=== PATIENT | female | born 1965 | race Caucasian/White ===

== ENCOUNTER 2016-05-19 10:53 | Day surgery (SDC) | payer BC ==
[2016-05-19 11:01] VITALS: BMI 31.6
--- NOTE | 2016-05-19 11:06 | PDOC ---
History of Present Illness - General History Source: Patient Exam Limitations: No Limitations - History of Present Illness Initial Comments: 05/19/16 11:07 The patient is a 50-year-old woman, with a significant past medical history of asthma, cardiomyopathy, breast ([id number] status post bilateral mastectomies) and ovarian Ca (Stage III; on IV taxol; Finished her third cycle last week), colon polyps, who presents to the emergency department for further evaluation of a possible reocurring left sided infected chest port since yesterday. As per patient, she reports that she noted slight redness around her port, approximately two weeks . She was on a ten day course of Keflex, for which she finished approximately 5 days ago. She states both peripheral and port blood cultures were drawn and were negative. She reports she has remained asymptomatic , no fevers, chills, cough, chest pain, lightheadedness, dizziness, palpitations , abdominal pain, nausea, vomiting. She reports noting redness around her port, yesterday. She states she has remained NPO. Upon interview, patients PMD, Dr. Bernadine Garcias was at the bedside. She reports she has spoken to Vascular Surgeon, Dr. Kleber Ordoñez and is aware about this case. Allergies: Piperacillin Sodium, Tazobactam. Docetaxel. Past Surgical History: Incarcerated hernia. Lumbar laminectomy. Bilateral Mastectomies. 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 No ETOH and recreational drug use. Primary Care Physician: Dr. Bernadine Garcias Office: / Oncologist: Dr. Dante Cantu Vascular Surgeon: Dr. Anam Ordoñez [phone] <Elke Doe - Last Filed: 05/19/16 14:01> <Raymond Gresham - Last Filed: 05/21/16 09:07> - General Chief Complaint: Wound Stated Complaint: INFFECTED PORT/ CATHERER Time Seen by Provider: 05/19/16 11:05 Past History <Elke Doe - Last Filed: 05/19/16 14:01> - Past Medical History Anemia: No Asthma: Yes Cancer: Yes (BREAST CA,ovarian ca stage 3) Cardiac Disorders: No CVA: No COPD: No CHF: No Dementia: No Diabetes: No GI Disorders: No Disorders: No HTN: No Hypercholesterolemia: No Liver Disease: No Seizures: No Thyroid Disease: No - Surgical History Abdominal Surgery: Yes (incarcerated hernia) Appendectomy: No Cardiac Surgery: No Cholecystectomy: No Lung Surgery: No Neurologic Surgery: No Orthopedic Surgery: Yes (LUMBAR LAMINECTOMY) - Psycho/Social/Smoking Cessation Hx Anxiety: No Suicidal Ideation: No Smoking History: Former smoker Have you smoked in the past 12 months: Yes If you are a former smoker, when did you quit?: 6 months Information on smoking cessation initiated: No 'Breaking Loose' booklet given: 08/04/15 Hx Alcohol Use: No Drug/Substance Use Hx: No Substance Use Type: None Hx Substance Use Treatment: No <Raymond Gresham - Last Filed: 05/21/16 09:07> - Past Medical History Allergies/Adverse Reactions: Allergies Allergy/AdvReac Type Severity Reaction Status Date / Time piperacillin sodium Allergy Severe Hives Verified 05/19/16 10:55 [From Zosyn] tazobactam sodium Allergy Severe Hives Verified 05/19/16 10:55 [From Zosyn] docetaxel [From Taxotere] Allergy Verified 05/19/16 10:55 PROLINE SUTURES Allergy Severe Uncoded 05/19/16 10:55 Home Medications: Ambulatory Orders Budesonide/Formeterol Fumarate [SYMBICORT 160/4.5mcg -] 1 inh PO BID #1 inhaler 01/07/14 Esomeprazole Magnesium [Nexium 24Hr] 20 mg PO DAILY PRN 08/04/15 Nebivolol HCl [Bystolic] 2.5 mg PO HS 08/04/15 Acetaminophen [Tylenol .Regular Strength -] 325 mg PO Q6H PRN #0 tablet Ramipril 2.5 mg PO HS 01/30/16 Oxycodone HCl/Acetaminophen [Percocet 5-325 mg Tablet] 1 - 2 tab PO Q4H #20 tablet MDD 6 02/02/16 Furosemide [Lasix -] 20 mg PO DAILY 03/15/16 Magnesium Oxide [Magnesium] 500 mg PO BID 03/15/16 Potassium Chloride [K-Dur -] 20 meq PO BID 03/15/16 Cephalexin Monohydrate [Keflex -] 500 mg PO Q8H #30 capsule 05/19/16 Filgrastim [Neupogen] 480 mcg IJ DAILY #0 05/19/16 Review of Systems - Review of Systems Able to Perform ROS?: Yes Comments:: 05/19/16 11:07 CONSTITUTIONAL: No reported: Fever, Chills, Diaphoresis, Generalized Weakness, Malaise, Loss of Appetite HEENT: No reported: Rhinorrhea, Nasal Congestion, Throat Pain, Throat Swelling, Difficulty Swallowing, Mouth Swelling, Ear Pain, Eye Pain, Visual Changes CARDIOVASCULAR: Reported: Chest Pain. Eleevated Blood Pressure and Heart Rate. No reported: Syncope, Irregular Heart Rate, Lightheadedness, Peripheral Edema RESPIRATORY: No reported: Cough, Shortness of Breath, SOB with Exertion, Orthopnea, Wheezing , Stridor, Hemoptysis GASTROINTESTINAL: No reported: Abdominal pain, Abdominal Distension, Nausea, Vomiting, Diarrhea, Constipation, Melena, Hematochezia GENITOURINARY: Reported: Flank Pain. No reported: Dysuria, Frequency, Urgency, Hesitancy, Genital Pain MUSCULOSKELETAL: Reported: Back Pain. No reported: Myalgia, Arthralgia, Joint Swelling, Neck Pain SKIN: No reported: Rash, Itching, Pallor HEMEATOLOGIC/IMMUNOLOGIC: Reported: Possible reocurring left sided chest port infection.No reported: Easy Bleeding, Easy Bruising, Lymphadenopathy. ENDOCRINE: No reported: Unexplained Weight Gain, Unexplained Weight Loss, Heat Intolerance , Cold Intolerance NEUROLOGIC: No reported: Headache, Focal Weakness, Paresthesias, Vertigo, Lightheadedness, Unsteady Gait, Seizure, Mental Status Changes, Incontinence PSYCHIATRIC: No reported: Anxiety, Depression <Elke Doe - Last Filed: 05/19/16 14:01> *Physical Exam - Vital Signs Last Vital Signs Temp Pulse Resp BP Pulse Ox 98.4 F 103 H 18 143/57 98 05/19/16 10:56 05/19/16 10:56 05/19/16 10:56 05/19/16 10:56 05/19/16 10:56 - Physical Exam Comments: 05/19/16 11:07 GENERAL: The patient is awake, alert, and fully oriented, Nontoxic - in no acute distress. HEAD: Normocephalic, atraumatic. EYES: extraocular movements intact, sclera anicteric, conjunctiva clear. ENT: Normal voice, Moist mucous membranes. NECK: Normal range of motion, supple LUNGS: Breath sounds equal, clear to auscultation bilaterally. No wheezes, no rhonchi, no rales. HEART: Regular rate and rhythm, without murmur, rub or gallop. ABDOMEN: Soft, nontender, normoactive bowel sounds. No guarding, no rebound.No CVA tenderness EXTREMITIES: Normal range of motion, no edema. No clubbing or cyanosis. No cords, erythema, or tenderness. NEUROLOGICAL: No facial assymetry, Normal speech, PSYCH: Normal mood, normal affect. SKIN: There is a left chest port with erythema and warmth over the access site. <Elke Doe - Last Filed: 05/19/16 14:01> - Vital Signs Last Vital Signs Temp Pulse Resp BP Pulse Ox 98.4 F 103 H 18 143/57 98 05/19/16 10:56 05/19/16 10:56 05/19/16 10:56 05/19/16 10:56 05/19/16 10:56 <Raymond Gresham - Last Filed: 05/21/16 09:07> ED Treatment Course - LABORATORY CBC & Chemistry Diagram: 05/19/16 12:28 05/19/16 12:28 <Elke Doe - Last Filed: 05/19/16 14:01> - LABORATORY CBC & Chemistry Diagram: 05/19/16 12:28 05/19/16 12:28 <Raymond Gresham - Last Filed: 05/21/16 09:07> Medical Decision Making - Medical Decision Making 05/19/16 11:38 Call was placed to Dr. Ordoñez's mobile phone at . Immediate response. Case was discussed. <Elke Doe - Last Filed: 05/19/16 14:01> - Medical Decision Making 05/19/16 11:24 50y F hx of ovarian ca currently on chemo, with port in the R chest, presents with erythema overlying her R chest - pt was formerly on course of keflex 2 weeks ago for the same with resolution of the erythema, but returned 2 days ago. No systemic complaints. Pt chest noted to have erythema/warmth overlying access area of her port. noted slightly tachycardic here but vitals otherwise normal. will discuss with dr. ordoñez regarding replcement will obtain repeat labs.cultures likely admission case d/w dr. garcias A portion of this note was documented by scribe services under my direction. I have reviewed the details of the note, within reason, and agree with the documentation with the following case summary and management plan written by me <Raymond Gresham - Last Filed: 05/21/16 09:07> *DC/Admit/Observation/Transfer - Attestations Scribe Attestion: 05/19/16 11:07 Documentation prepared by Elke Doe, acting as medical delivery driver for Raymond Gresham MD. <Elke Doe - Last Filed: 05/19/16 14:01> - Discharge Dispostion Admit: Yes <Raymond Gresham - Last Filed: 05/21/16 09:07> Diagnosis at time of Disposition: Infection due to portacath Qualifiers: Encounter type: initial encounter Qualified Code(s): T80.219A - Unspecified infection due to central venous catheter, initial encounter - Discharge Dispostion Condition at time of disposition: Good - Prescriptions
--- NOTE | 2016-05-19 12:18 | HP ---
Admitting History and Physical - Primary Care Physician PCP: Bernadine Garcias S - Admission Chief Complaint: infected port History of Present Illness: The patient is a 50-year-old woman, with a significant past medical history of asthma, cardiomyopathy, breast CA ([id number] status post bilateral mastectomies ) and ovarian Ca (Stage III; on IV taxol; Finished her third cycle last week), colon polyps, who presents to the emergency department for further evaluation of a possible reocurring left sided infected chest port since yesterday. As per patient, she reports that she noted slight redness around her port, approximately two weeks . She was on a ten day course of Keflex, for which she finished approximately 5 days ago. She states both peripheral and port blood cultures were drawn and were negative. She reports she has remained asymptomatic , no fevers, chills, cough, chest pain, lightheadedness, dizziness, palpitations , abdominal pain, nausea, vomiting. She reports noting redness around her port, yesterday. She states she has remained NPO. Allergies: Piperacillin Sodium, Tazobactam. Docetaxel. 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 Cardiovascular: Yes: CHF, Other (cardiomyopathy s/p chemotx, EF 45%) Pulmonary: Yes: Asthma Gastrointestinal: Yes: GERD, Other (hyperplastic colon polyps 2009 and 2102, pancreatic cyst on 2013 MRI, hiatal hernia ) Hepatobiliary: Yes: Other (GB sludge) ...LMP: 12/30/14 Heme/Onc: Yes: Cancer (breasts CA bilat s/p mastectomy) - Past Surgical History Past Surgical History: Yes: Breast Biopsy, Colonoscopy, , Laminectomy, Mastectomy, Upper Endoscopy - Smoking History Smoking history: Former smoker Have you smoked in the past 12 months: Yes If you are a former smoker, when did you quit?: 6 months - Alcohol/Substance Use Hx Alcohol Use: No History of Substance Use: reports: None - Social History Usual Living Arrangement: Yes: With Spouse ADL: Independent 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 Travel: No Home Medications - Allergies Allergies/Adverse Reactions: Allergies Allergy/AdvReac Type Severity Reaction Status Date / Time piperacillin sodium Allergy Severe Hives Verified 05/19/16 10:55 [From Zosyn] tazobactam sodium Allergy Severe Hives Verified 05/19/16 10:55 [From Zosyn] docetaxel [From Taxotere] Allergy Verified 05/19/16 10:55 PROLINE SUTURES Allergy Severe Uncoded 05/19/16 10:55 - Home Medications Home Medications: Ambulatory Orders Budesonide/Formeterol Fumarate [SYMBICORT 160/4.5mcg -] 1 inh PO BID #1 inhaler 01/07/14 Esomeprazole Magnesium [Nexium 24Hr] 20 mg PO DAILY PRN 08/04/15 Nebivolol HCl [Bystolic] 2.5 mg PO HS 08/04/15 Acetaminophen [Tylenol .Regular Strength -] 325 mg PO Q6H PRN #0 tablet Ramipril 2.5 mg PO HS 01/30/16 Oxycodone HCl/Acetaminophen [Percocet 5/325 -] 1 - 2 tab PO Q4H #20 tablet MDD 6 02/02/16 Furosemide [Lasix -] 20 mg PO DAILY 03/15/16 Magnesium Oxide [Magnesium] 500 mg PO BID 03/15/16 Potassium Chloride [K-Dur -] 20 meq PO BID 03/15/16 Filgrastim [Neupogen] 480 mcg IJ DAILY 05/19/16 Family Disease History - Family Disease History Family Disease History: Heart Disease: Father, CA: Mother (Breast cancer, colon cancer), Other: Mother, Sister (Sjogren's syndrome) Review of Systems - Review of Systems Constitutional: denies: Chills, Fever Eyes: denies: Blurred Vision, Double Vision HENT: denies: Difficult Swallowing, Ear Pain Neck: denies: Stiffness, Tenderness Gastrointestinal: denies: Abdominal Pain, Bloating, Constipation, Diarrhea, Vomiting Genitourinary: denies: Dysuria, Flank Pain Neurological: denies: Change in LOC, Change in Speech, Confusion Hematology/Lymphatic: denies: Easily Bruised, Excessive Bleeding Psychiatric: denies: Altered Sleep Pattern, Anxiety, Depression Physical Examination Vital Signs: Vital Signs Temperature 98.4 F 05/19/16 10:56 Pulse Rate 103 H 05/19/16 10:56 Respiratory Rate 18 05/19/16 10:56 Blood Pressure 143/57 05/19/16 10:56 O2 Sat by Pulse Oximetry (%) 98 05/19/16 10:56 Constitutional: Yes: No Distress, Calm Eyes: Yes: Conjunctiva Clear HENT: Yes: Atraumatic Neck: Yes: Supple Cardiovascular: Yes: Regular Rate and Rhythm Respiratory: Yes: CTA Bilaterally Gastrointestinal: Yes: Soft. No: Distention, Tenderness Renal/: No: CVA Tenderness - Left, CVA Tenderness - Right Musculoskeletal: No: Joint Stiffness, Joint Swelling Extremities: No: Cold, Cool Edema: No Integumentary: Yes: Rash (over L upper chest port). No: Venous Stasis Changes Neurological: Yes: WNL, Alert, Oriented ...Motor Strength: WNL Psychiatric: Yes: WNL, Alert, Oriented. No: Agitated, Suicidal Ideation Assessment/Plan The patient is a 50-year-old woman, with a significant past medical history of asthma, cardiomyopathy, breast ([id number] status post bilateral mastectomies) and ovarian Ca (Stage III; on IV taxol; Finished her third cycle last week), colon polyps, who presents to the emergency department for further evaluation of a possible reocurring left sided infected chest port since yesterday. s/p recent po Keflex. d/w vascular sx dr Biswas (covering dr Wall who is in vacation) will removed infected port PO keflex, further ATB depending on intraop findings pt received neupogen 1 dose today in onc office, for WBC 2.7
[2016-05-19 12:47] LABS: MCH 32.9 pg (25.7-33.7); MCHC 35.1 g/dl (32.0-36.0); MEAN CELL VOLUME 93.8 fl (80-96); MEAN PLT VOLUME 9.9 fl (7.5-11.1); PLATELET COUNT 100 K/MM3 (134-434); RDW 13.8 % (11.6-15.6); WHITE BLOOD COUNT 3.5 K/mm3 (4.0-10.0)
[2016-05-19] MEDS ORDERED: LIDOCAINE HCL 1%, 10 MG/ML (20ML VIAL) ONE (13:04)
[2016-05-19 13:26] LABS: METAMYELOCYTE 1 % (0-2)
[2016-05-19] MEDS ORDERED: MIDAZOLAM HCL 2 MG/2 ML SINGLE DOSE VIAL ONE (13:26)
[2016-05-19 13:28] LABS: ALBUMIN 3.4 g/dl (3.4-5.0); BILIRUBIN,TOTAL 0.3 mg/dL (0.2-1.0); CREATININE 1.2 mg/dL (0.55-1.02)
[2016-05-19 13:29] LABS: TOT PROT 6.5 g/dl (6.4-8.2)
[2016-05-19] MEDS ORDERED: ceFAZolin SODIUM 1 GM VIAL ONE (13:35)
[2016-05-19] MEDS ORDERED: PROPOFOL 20 ML ONE (13:35)
[2016-05-19] MEDS ORDERED: ceFAZolin SODIUM 1 GM VIAL IVPB ONE (13:36)
[2016-05-19] MEDS ORDERED: LIDOCAINE HCL 1%, 10 MG/ML (20ML VIAL) IJ ONE ×2 (13:50)
[2016-05-19] MEDS ORDERED: KETOROLAC TROMETHAMINE 30 MG/1 ML VIAL ONE (13:59)
[2016-05-19] MEDS ORDERED: ONDANSETRON 4 MG/2 ML VIAL IVPUSH PRN (14:19)
[2016-05-19] MEDS ORDERED: oxyCODONE HCL 5 MG TABLET PO PRN ×2 (14:19→17:17)
[2016-05-19] MEDS ORDERED: ACETAMINOPHEN 1000 MG/100 ML VIAL (NON FORMULARY) IVPB PRN (14:20)
[2016-05-19] MEDS: HYDROmorphone HCL CARPU-JECT 1 MG/1 ML DISP.SYRIN IVPUSH PRN ×2 (14:20→14:35)
[2016-05-19] MEDS ORDERED: HYDROmorphone HCL CARPU-JECT 2 MG/1 ML DISP.SYRIN ONE (14:20)
--- NOTE | 2016-05-19 14:21 | OP ---
Operative Note - Note: Operative Date: 05/19/16 Pre-Operative Diagnosis: infected portacath Operation: Removal of portacath Findings: cultures taken from wound Post-Operative Diagnosis: Same as Pre-op Surgeon: Anam Biswas Anesthesia: Fractional Estimated Blood Loss (mls): 10 Operative Report Dictated: Yes
[2016-05-19] MEDS ORDERED: SODIUM CHLORIDE 1,000 ML IV SCH ×2 (14:30)
[2016-05-19 15:22] VITALS: TEMP 97.8
[2016-05-19] MEDS ORDERED: PATIENT'S OWN MEDICATION (NON-FORMULARY) (Esomeprazole Magnesium [Nexium 24hr] 20 MG) PO PRN (15:53)
[2016-05-19] MEDS ORDERED: ACETAMINOPHEN 325 MG TABLET (FP) PO PRN ×3 (15:53→17:17)
[2016-05-19] MEDS ORDERED: OXYCODONE/APAP 5/325MG COMBO TABLET PO SCH (16:00)
--- NOTE | 2016-05-19 16:00 | DS ---
Physical Examination Vital Signs: Vital Signs Temperature 97.8 F 05/19/16 15:15 Pulse Rate 76 05/19/16 15:15 Respiratory Rate 16 05/19/16 15:15 Blood Pressure 99/50 05/19/16 15:15 O2 Sat by Pulse Oximetry (%) 96 05/19/16 15:00 Findings/Remarks: s/p port removal for infection OK to DC home on po Keflex per surgery f/u with PCP, Oncology and vascular sx in 1-2 weeks check labs CBC CMP in 2-3 days cardio f/u as advised d/w pt scripts doen as needed Constitutional: Yes: No Distress, Calm Eyes: Yes: Conjunctiva Clear HENT: Yes: Atraumatic Neck: Yes: Supple Cardiovascular: Yes: Regular Rate and Rhythm Respiratory: Yes: CTA Bilaterally Gastrointestinal: Yes: Soft. No: Distention, Tenderness Musculoskeletal: No: Joint Stiffness, Joint Swelling Extremities: No: Cold, Cool Edema: No Peripheral Pulses WNL: Yes Integumentary: No: Rash, Venous Stasis Changes Neurological: Yes: WNL, Alert, Oriented ...Motor Strength: WNL Psychiatric: Yes: WNL, Alert, Oriented. No: Agitated Labs: CBC, BMP 05/19/16 12:28 05/19/16 12:28 Discharge Summary Reason For Visit: INFECTION DUE TO PORTACATH Current Active Problems Infection due to portacath (Acute) Procedures: Principal: port infection Other Procedures: removed by vascular sx Hospital Course: po antibiotics; DC home, f/u as advised Condition: Good - Instructions Diet, Activity, Other Instructions: S/P portacath removal. occupational health manager keflex on the way home. Can remove dressing in two days. Leave steri strips on. Come back to office in one week. 5th floor -- Vascular/Wound care clinic f/u PCP, cardiology and oncology and labs as advised call for appt -- [phone] Disposition: HOME - Home Medications Comprehensive Discharge Medication List: Ambulatory Orders Budesonide/Formeterol Fumarate [SYMBICORT 160/4.5mcg -] 1 inh PO BID #1 inhaler 01/07/14 Esomeprazole Magnesium [Nexium 24Hr] 20 mg PO DAILY PRN 08/04/15 Nebivolol HCl [Bystolic] 2.5 mg PO HS 08/04/15 Acetaminophen [Tylenol .Regular Strength -] 325 mg PO Q6H PRN #0 tablet Ramipril 2.5 mg PO HS 01/30/16 Oxycodone HCl/Acetaminophen [Percocet 5-325 mg Tablet] 1 - 2 tab PO Q4H #20 tablet MDD 6 02/02/16 Furosemide [Lasix -] 20 mg PO DAILY 03/15/16 Magnesium Oxide [Magnesium] 500 mg PO BID 03/15/16 Potassium Chloride [K-Dur -] 20 meq PO BID 03/15/16 Cephalexin Monohydrate [Keflex -] 500 mg PO Q8H #30 capsule 05/19/16 Filgrastim [Neupogen] 480 mcg IJ DAILY #0 05/19/16
[2016-05-19 16:39] VITALS: BP 120/76; PULSE 100
[2016-05-19] MEDS ORDERED: NEBIVOLOL 2.5 MG TABLET (FP) PO SCH ×2 (22:00)
[2016-05-19] MEDS ORDERED: BUDESONIDE/FORMETEROL FUMARATE 160/4.5 mcg INHALER IH SCH ×2 (22:00)
[2016-05-19] MEDS ORDERED: POTASSIUM CHLORIDE TABS 20 MEQ TABLET.ER (FP) PO SCH ×2 (22:00)
[2016-05-19] MEDS ORDERED: PATIENT'S OWN MEDICATION (NON-FORMULARY) (Magnesium Oxide [Magnesium] 500 MG) PO SCH ×2 (22:00)
[2016-05-19] MEDS ORDERED: RAMIPRIL 2.5 MG CAPSULE (FP) PO SCH ×2 (22:00)
[2016-05-20] MEDS ORDERED: FILGRASTIM 480 MCG IJ SCH ×2 (10:00)
[2016-05-20] MEDS ORDERED: FUROSEMIDE 20 MG TABLET (FP) PO SCH ×2 (10:00)
[2016-05-20] MEDS ORDERED: PANTOPRAZOLE 20 MG TABLET (FP) PO SCH (10:00)
--- NOTE | 2016-05-20 13:26 | OP ---
DATE OF OPERATION: 05/19/2016 PREOPERATIVE DIAGNOSIS: Infected Port-A-Cath. POSTOPERATIVE DIAGNOSIS: Infected Port-A-Cath. PROCEDURE: Removal of Port-A-Cath. SURGEON: Anam James DO ANESTHESIA: Fractional. BLOOD LOSS: 10 mL. INDICATIONS: The patient is a 50-year-old female who has a left subclavian Port-A-Cath. She went to her doctor today and found the Port-A-Cath site to be having a lot of erythema and asked her to come to the hospital to have it removed. The patient was consented for the procedure understanding all risks, benefits, and alternatives then taken to the operating room. DESCRIPTION OF PROCEDURE: Once in the operating suite, the area of the left neck and chest were prepped and draped in a sterile surgical manner. We then went ahead and injected 20 mL lidocaine 1% over the Port-A-Cath. We then used a No. 15 blade and made a 4-cm incision using the knife. Once the incision was made, Bovie electrocautery was used to control hemostasis, and we were able to dissect out the Port-A-Cath and then remove it. Once removed, there was some bleeding in the area, which down when we performed Bovie electrocautery to it. At this point, we irrigated the wound copiously and we went ahead and used 3-0 Vicryl. We put subcutaneous sutures in to approximate the subcutaneous tissue. The skin was then closed with 4-0 Biosyn in a subcuticular running fashion. The area was wet and dried. Steri-Strips were placed. Then 4 x 4 Tegaderms were placed. The patient tolerated the procedure with no complications. ANAM JAMES DO EXPEDITER CLERK/[id number]
--- NOTE | 2016-05-21 13:17 | PATH ---
Surgical Pathology Report Patient Name: JI MICHAEL Med. Rec. 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 Electronically Signed Kiran Abbott M.D. Gross Description Received fresh, labeled "Port-A-Cath" is a 3.8 x 2.8 x 1.5 cm purple, irregular device, consistent with a cecille cath. The Port-A-Cath displays a 23 cm in length portion of white tubing extending from one aspect. No soft tissue is present. No sections are submitted, gross only. 05/20/2016 [facility]05/20/2016
== END 2016-05-19 16:00 | disposition home or self-care (01) ==
LOC: JOR 10:53 → JASUSAT 11:36 → UNDOADMIN 11:40 → JERBED 11:40 → JASUSAT 16:00
PROVIDERS: ATTEND Surgery Vascular Surgery
PROC: 0JPT0XZ Removal of Tunneled Vascular Access Device from Trunk Subcutaneous Tissue and Fascia, Open Approach (ICD-10-PCS; principal; 2016-05-19 14:30)
DX: T80.219A Unspecified infection due to central venous catheter, initial encounter (principal); B99.9 Unspecified infectious disease; C79.60 Secondary malignant neoplasm of unspecified ovary; Z85.3 Personal history of malignant neoplasm of breast; J45.909 Unspecified asthma, uncomplicated; I42.9 Cardiomyopathy, unspecified
CPT/HCPCS: 36415; 80053; 85025; 87040; 87070; 87186; 87205; 88300-TC; 94760; 99283-25

== ENCOUNTER 2016-05-31 05:11 | Day surgery (SDC) | payer BC ==
[2016-05-27 17:13] VITALS: BMI 31.6
[2016-05-31] MEDS ORDERED: DEXAMETHASONE SOD PHOSPHATE 4 MG/1 ML VIAL ONE (07:31)
[2016-05-31] MEDS ORDERED: KETOROLAC TROMETHAMINE 30 MG/1 ML VIAL ONE (07:31)
[2016-05-31] MEDS ORDERED: PROPOFOL 20 ML ONE ×2 (07:32)
[2016-05-31] MEDS ORDERED: MIDAZOLAM HCL 2 MG/2 ML SINGLE DOSE VIAL ONE (07:32)
[2016-05-31] MEDS ORDERED: SUCCINYLCHOLINE CHLORIDE 200 MG/10 ML VIAL ONE ×3 (07:32→07:33)
[2016-05-31] MEDS ORDERED: ROCURONIUM BROMIDE 50 MG/5 ML VIAL ONE (07:32)
[2016-05-31] MEDS ORDERED: ePHEDrine SULFATE 50 MG/1 ML AMPULE ONE (07:33)
[2016-05-31] MEDS ORDERED: PHENYLEPHRINE HCL 10 MG/1 ML SINGLE DOSE VIAL ONE (07:33)
[2016-05-31] MEDS ORDERED: ceFAZolin SODIUM 1 GM VIAL ONE (08:14)
[2016-05-31] MEDS ORDERED: ceFAZolin SODIUM 1 GM VIAL IVPB ONE (08:14)
[2016-05-31] MEDS ORDERED: BUPIVACAINE HCL/PF 0.5% (5MG/ML) 10 ML VIAL ONE (08:20)
[2016-05-31] MEDS ORDERED: BUPIVACAINE HCL/PF 0.5% (5MG/ML) 10 ML VIAL IJ ONE ×2 (08:24→08:30)
[2016-05-31] MEDS ORDERED: ONDANSETRON 4 MG/2 ML VIAL IVPB PRN (08:43)
[2016-05-31] MEDS ORDERED: ACETAMINOPHEN 325 MG TABLET (FP) PO PRN (08:43)
[2016-05-31] MEDS ORDERED: oxyCODONE HCL 5 MG TABLET PO PRN (08:43)
--- NOTE | 2016-05-31 08:51 | OP ---
Operative Note - Note: Operative Date: 05/31/16 Pre-Operative Diagnosis: ovarian cancer Operation: removal of portacatheter Findings: port on LUQ Post-Operative Diagnosis: Same as Pre-op Surgeon: Frankie Romero Anesthesia: General Estimated Blood Loss (mls): 0 Operative Report Dictated: Yes
--- NOTE | 2016-05-31 08:52 | DS ---
Physical Examination Vital Signs: Vital Signs Temperature 97.6 F 05/31/16 07:40 Pulse Rate 100 H 05/31/16 07:40 Respiratory Rate 20 05/31/16 07:40 Blood Pressure 116/66 05/31/16 07:40 O2 Sat by Pulse Oximetry (%) 96 05/31/16 07:37 Constitutional: Yes: Well Nourished Eyes: Yes: WNL HENT: Yes: WNL Neck: Yes: WNL Cardiovascular: Yes: WNL Respiratory: Yes: WNL Gastrointestinal: Yes: WNL Discharge Summary Reason For Visit: OVARIAN CANCER Condition: Good - Instructions Diet, Activity, Other Instructions: May have regular diet, no heavy lifting and no driving while taking percocet. Disposition: HOME - Home Medications Comprehensive Discharge Medication List: Ambulatory Orders Nebivolol HCl [Bystolic] 2.5 mg PO HS 08/04/15 Ramipril 2.5 mg PO HS 01/30/16 Budesonide/Formeterol Fumarate [SYMBICORT 160/4.5mcg -] 1 inh PO BID 05/27/16 Ranitidine HCl [Zantac] 150 mg PO DAILY PRN 05/27/16
[2016-05-31] MEDS ORDERED: IBUPROFEN 400 MG TABLET (FP) PO PRN (08:54)
[2016-05-31] MEDS ORDERED: LACTATED RINGERS SOLUTION 1,000 ML IV SCH (09:30)
[2016-05-31 09:32] VITALS: TEMP 98.3
[2016-05-31] MEDS ORDERED: oxyCODONE HCL 5 MG TABLET ONE (11:18)
[2016-05-31 12:33] VITALS: BP 86/56; PULSE 78
--- NOTE | 2016-06-01 03:55 | OP ---
DATE OF OPERATION: 05/31/2016 PROCEDURE: Removal intraperitoneal Port-A-Cath PREOPERATIVE DIAGNOSIS: Ovarian cancer status post intraperitoneal chemotherapy POSTOPERATVE DIAGNOSIS: Ovarian cancer status post intraperitoneal chemotherapy SURGEON: Frankie Romero MD ANESTHESIA: General ESTIMATED BLOOD LOSS: Minimal OPERATIVE FINDINGS: The patient has a Port-A-Cath placed at the left upper quadrant of the abdomen. OPERATIVE PROCEDURE: Under general anesthesia, skin was prepped and draped in usual manner for abdominal procedure. After time out, an incision was made over the previous incision. This was followed by identifying the port and dissecting the port free from its adjacent tissues and removing the sutures. The Port was then removed successfully and completely. Subcutaneous tissue was irrigated and hemostasis secured; 0.5% Marcaine 30 mL was given; 2-0 Vicryl suture was used to close the deep subcutaneous space, and 4-0 Monocryl to skin. The patient tolerated the procedure well. She was then extubated and transported to the recovery room in stable condition. Lap and instrument count was correct x 2. Susi [id number]
--- NOTE | 2016-06-01 08:51 | PATH ---
Surgical Pathology Report Patient Name: JI MICHAEL Med. Rec. 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 Electronically Signed Jl Omalley M.D. Gross Description Received fresh, labeled "removed intraperitoneal port," is a 2.5 x 2.5 x 1.6 cm villalobos metallic port. The specimen displays a 30 cm in length portion of white tubing extending from one aspect. No soft tissue is present. No sections are submitted, gross only. /05/31/2016 saudi/05/31/2016
== END 2016-05-31 12:15 | disposition home or self-care (01) ==
LOC: JASU-SURG 05:11
PROVIDERS: ATTEND Obstetrics & Gynecology Gynecologic Oncology
PROC: 0WPG03Z Removal of Infusion Device from Peritoneal Cavity, Open Approach (ICD-10-PCS; principal; 2016-05-31 08:00)
DX: Z46.82 Encounter for fitting and adjustment of non-vascular catheter (principal); C79.60 Secondary malignant neoplasm of unspecified ovary
CPT/HCPCS: 88300-TC; 94760

== ENCOUNTER 2016-10-20 05:09 | Inpatient (IN) | payer BC ==
[2016-10-18 10:48] VITALS: BMI 33.6
[~2016-10-20 05:09] MED LIST: ceFAZolin SODIUM 1 GM VIAL IVPB ONE
[2016-10-20] MEDS ORDERED: MIDAZOLAM HCL 2 MG/2 ML SINGLE DOSE VIAL ONE ×2 (12:00)
[2016-10-20] MEDS ORDERED: ceFAZolin SODIUM 1 GM VIAL ONE (12:06)
[2016-10-20] MEDS ORDERED: HEPARIN NA (PORCINE) 5,000 UNITS/ML 1ML VIAL ONE (12:22)
[2016-10-20] MEDS ORDERED: BUPIVACAINE HCL/PF 0.25% (2.5MG/ML) 10 ML VIAL ONE (12:39)
[2016-10-20] MEDS ORDERED: DEXAMETHASONE SOD PHOSPHATE/PF 10 MG/ML SDV ONE (12:39)
[2016-10-20] MEDS ORDERED: ceFAZolin SODIUM 1 GM VIAL IVPB ONE ×2 (13:25)
[2016-10-20] MEDS ORDERED: HYDROmorphone HCL/PF 1 MG/ML VIAL (FOR PYXIS CHARGING ONLY) ONE ×2 (13:25→15:48)
[2016-10-20] MEDS ORDERED: morphine CARPU-JECT 10 MG/1 ML DISP.SYRIN IVPB PRN (13:41)
[2016-10-20] MEDS ORDERED: ONDANSETRON 4 MG/2 ML VIAL IVPB PRN (13:41)
[2016-10-20] MEDS ORDERED: ACETAMINOPHEN 325 MG TABLET (FP) PO PRN (13:41)
[2016-10-20] MEDS ORDERED: D5-1/2NS+20 MEQ KCL - 1,000 ML IV SCH (13:45)
[2016-10-20] MEDS ORDERED: IBUPROFEN 800 MG/8 ML IJ IVPB PRN (13:45)
[2016-10-20] MEDS ORDERED: ROCURONIUM BROMIDE 50 MG/5 ML VIAL ONE (14:12)
[2016-10-20] MEDS ORDERED: KETOROLAC TROMETHAMINE 30 MG/1 ML VIAL ONE (14:53)
[2016-10-20] MEDS ORDERED: DEXAMETHASONE SOD PHOSPHATE 4 MG/1 ML VIAL ONE (14:53)
[2016-10-20] MEDS ORDERED: NEOSTIGMINE METHYLSULFATE 0.5 MG/ML - 10 ML MDV ONE (15:16)
[2016-10-20] MEDS ORDERED: GLYCOPYRROLATE 0.2 MG/1 ML VIAL ONE ×2 (15:16→15:18)
[2016-10-20] MEDS ORDERED: HYDROmorphone HCL CARPU-JECT 1 MG/1 ML DISP.SYRIN IVPUSH PRN ×2 (16:03→16:05)
[2016-10-20] MEDS ORDERED: HYDROmorphone HCL CARPU-JECT 2 MG/1 ML DISP.SYRIN ONE (16:05)
[2016-10-20] MEDS ORDERED: LACTATED RINGERS SOLUTION 1,000 ML IV SCH (16:15)
[2016-10-20] MEDS ORDERED: ACETAMINOPHEN INJECTION 100 ML IVPB ONE (16:45)
[2016-10-20] MEDS: ACETAMINOPHEN 1000 MG/100 ML VIAL (NON FORMULARY) IVPB SCH ×3 (16:55→23:17)
[2016-10-20] MEDS ORDERED: ONDANSETRON 4 MG/2 ML VIAL ONE (17:24)
[2016-10-20] MEDS: traMADol HCL 50 MG TABLET PO SCH (19:04)
[2016-10-20] MEDS ORDERED: morphine CARPU-JECT 4 MG/1 ML DISP.SYRIN IVPB PRN (19:42)
[2016-10-20] MEDS: BUDESONIDE/FORMETEROL FUMARATE 160/4.5 mcg INHALER IH SCH (21:13)
[2016-10-20] MEDS: NEBIVOLOL 5 MG TABLET (FP) PO SCH (21:23)
[2016-10-20] MEDS: RAMIPRIL 2.5 MG CAPSULE (FP) PO SCH (21:23)
[2016-10-20] MEDS ORDERED: HEPARIN NA (PORCINE) 5,000 UNITS/ML 1ML VIAL SQ ONE (22:00)
[2016-10-21] MEDS: traMADol HCL 50 MG TABLET PO SCH ×4 (01:48→17:35)
[2016-10-21] MEDS: ACETAMINOPHEN 1000 MG/100 ML VIAL (NON FORMULARY) IVPB SCH ×2 (04:30→10:47)
[2016-10-21] MEDS ORDERED: PT OWN MED DRAWER 7, Y5N ONE (09:38)
[2016-10-21] MEDS ORDERED: PANTOPRAZOLE SODIUM 40 MG VIAL ONE (09:38)
[2016-10-21] MEDS ORDERED: SODIUM CHLORIDE 100 ML IVPB ONE (09:39)
--- NOTE | 2016-10-21 09:47 | PN ---
Progress Note (short form) - Note Progress Note: Anesthesia POD#1 S/P Open Component Separation with mesh under GA and TAP blook Vss,no N/V,started orals,pain is under control. No complications to anesthesia seen. Kaleigh Matt MD.
[2016-10-21] MEDS ORDERED: PANTOPRAZOLE SODIUM 40 MG in SODIUM CHLORIDE 100 ML IVPB SCH (10:00)
[2016-10-21] MEDS ORDERED: PANTOPRAZOLE SODIUM 100 ML IVPB SCH (10:00)
[2016-10-21] MEDS: BUDESONIDE/FORMETEROL FUMARATE 160/4.5 mcg INHALER IH SCH ×2 (10:14→22:16)
[2016-10-21] MEDS: ENOXAPARIN NA (PORCINE) 40 MG/0.4 ML DISP.SYRIN SQ SCH (10:15)
--- NOTE | 2016-10-21 11:51 | PN ---
Progress Note (short form) - Note Progress Note: surgery pt seen and exmained. pain somewhat controlled. oob. voiding. tolerating liquids. afebrile abd- soft, moderate distension, incision clean, jeovany serous x 2. A/P 1) Pod#1- regular diet, stop ivf, cont jeovany 2) pain- motrin, tylenol, morphine, oxycodone 3) prophylaxis- lovenox, protonix, oob 4) htn- betablocker, coy inhibitor poss d/c tomorrow with better pain control
--- NOTE | 2016-10-21 13:05 | OP ---
DATE OF OPERATION: 10/20/2016 PREOPERATIVE DIAGNOSIS: Complex, chronically incarcerated ventral/incisional abdominal wall hernia. POSTOPERATIVE DIAGNOSIS: Complex, chronically incarcerated ventral/incisional abdominal wall hernia. PROCEDURE: Open bilateral-component separation repair of complex, chronically incarcerated ventral/incisional abdominal wall hernia with mesh. OPERATING SURGEON: Husam Caldera MD AD WRITER: Ammon Bailey MD ANESTHESIA: General, Urmila Farrell MD HISTORY: This is a 50-year-old woman who has had several prior abdominal procedures. 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 She presents now for repair of a rather large, complex, chronically incarcerated ventral/incisional abdominal wall hernia. Indications, alternatives, possible complications reviewed. Consent obtained. DESCRIPTION OF PROCEDURE: With the patient in the supine position and after general anesthesia, the abdomen was prepped and draped in sterile fashion using chlorhexidine. An incision was made in the pre-existing scar beginning above the umbilicus and extending for a significant distance below the umbilicus. The incision was deepened into the subcutaneous space. In the subcutaneous space, the large hernia sac was easily encountered. The hernia sac was opened. The hernia contained obvious loops of small bowel. Lysis of adhesions ensued, freeing the small bowel from portions of the hernia sac as well as the fascial ring and the undersurface of the anterior abdominal wall, ultimately reducing all of the small bowel. First directing our attention to the right side of the anterior abdominal wall, the posterior sheath was from the overlying rectus muscle fibers. This separation and dissection was carried out in the lateral direction both inferiorly and superiorly. Ultimately, the junction of the oblique and transversus musculature with the lateral rectus edge was encountered. Transversus abdominis rectus release ensued, and the retrorectus plane was continued to be created again in the lateral direction, inferiorly to the level of the iliac crest and superiorly to the level of the costal margin. Now directing our attention to the patient's left side, again the posterior sheath was from the overlying rectus musculature, and the retrorectus space developed in the lateral direction, again proceeding inferiorly and superiorly. Again, a left transverse rectus abdominis release was performed under direct vision, and the retrorectus space further developed and extended again laterally, in the superior direction again to the costal margin and inferior direction to the level of the iliac crests. The posterior sheath was then approximated, re-creating the posterior midline. This was accomplished using a continuous 3-0 Maxon suture. After the posterior midline was created, a custom Composite mesh was fashioned to span the distance in the retrorectus space. A piece of Phasix mesh measuring 24.4 cm x 30.5 cm was sutured to a piece of Versatex mesh. The Versatex mesh was larger in size and subsequently trimmed to the actual Phasix mesh size. This was accomplished using interrupted, circumferential 3-0 Vicryl sutures. The large custom Composite mesh was then placed in the retrorectus space with the Phasix side down. The mesh was spread out in all directions, and using an AbsorbaTack and counter-palpation, the mesh was fixed peripherally to the overlying anterior musculature. Mesh was tacked at the costal margins superiorly. The mesh was tacked inferiorly close to the pubic tubercle. The mesh was tacked laterally in all directions. The retrorectus space and Composite mesh were irrigated and adequate hemostasis ensured. The overlying anterior fascia was then closed using No. 1 PDS suture in a continuous fashion. A suture was started both superiorly and inferiorly and was run in a continuous fashion and ultimately tied at the wound mid-point, while leaving the custom Composite mesh entirely in the retrorectus space. Two Jed-Golden drains were placed in the subcutaneous space and exited through 2 defects in the skin in the right and left lower quadrants where the drains were tacked to the skin using 2-0 silk suture material. The subcutaneous space was irrigated and adequate hemostasis ensured. The undersurface of the umbilicus was tacked to the underlying fascia to create the usual inward appearance. The wound was then closed in layers. The subcutaneous tissues were approximated using interrupted 2-0 chromic suture. The subcuticular layer was approximated with interrupted 4-0 Biosyn sutures. The skin edges were approximated using metallic clips. Dermabond applied. Procedure terminated. Needle and instrument count correct. ESTIMATED BLOOD LOSS: 150 mL SPECIMEN: Portion of ventral hernia sac which was harvested from the subcutaneous space. DRAINS: Two JPs. IMPLANT: Phasix mesh 24.5 cm and 30.5 cm, as well as Versatex monofilament mesh which initially measured 50 x 50 cm in size, but was cut to the actual size of the Phasix mesh prior to implantation. The patient tolerated the procedure, and the procedure was terminated. Susi [id number] MTDD
[2016-10-21] MEDS: RAMIPRIL 2.5 MG CAPSULE (FP) PO SCH (22:16)
[2016-10-21] MEDS: NEBIVOLOL 5 MG TABLET (FP) PO SCH (22:17)
[2016-10-21] MEDS: oxyCODONE HCL 5 MG TABLET PO PRN (22:46)
[2016-10-22] MEDS: oxyCODONE HCL 5 MG TABLET PO PRN ×2 (04:47→13:04)
[2016-10-22 06:07] VITALS: TEMP 98.7
[2016-10-22] MEDS: traMADol HCL 50 MG TABLET PO SCH ×3 (06:15→11:31)
[2016-10-22 09:33] VITALS: BP 106/49; PULSE 74
[2016-10-22] MEDS ORDERED: PANTOPRAZOLE 40 MG TABLET (FP) PO SCH (10:00)
[2016-10-22] MEDS: ENOXAPARIN NA (PORCINE) 40 MG/0.4 ML DISP.SYRIN SQ SCH (10:37)
[2016-10-22] MEDS: BUDESONIDE/FORMETEROL FUMARATE 160/4.5 mcg INHALER IH SCH (10:38)
--- NOTE | 2016-10-23 13:12 | DS ---
DATE OF ADMISSION: 10/20/2016 DATE OF DISCHARGE: 10/22/2016 ADMITTING DIAGNOSIS: Complex, incarcerated incisional hernia. DISCHARGE DIAGNOSES: 1. Complex, incarcerated incisional hernia. 2. Patient also had pre-existing chronic obstructive pulmonary disease and hypertension. BRIEF HISTORY: This is a 50-year-old female who was admitted to [facility] on October 20 for surgical management of a chronically incarcerated incisional hernia. She underwent a repair of this hernia utilizing mesh, component separation, and myofascial release. Please see Dr. Caldera's operative report for details. Postoperatively, she required a narcotic pain medication for postoperative pain. She took her usual home medications, and she was on a liquid diet. She is being discharged home today, October 22, tolerating liquids. She is ambulating and voiding. Her pain is well controlled with oral narcotics. On exam, her abdomen is soft, nontender, and her incision is clean. She will go home with a binder and with 2 Jed-Golden drains which she will empty daily and record the amount. She will follow up with Dr. Caldera next week to be evaluated for drain removal. She has a new prescription for Percocet which she will take as needed for pain, and she will continue her usual home medications of Bystolic, Ramipril, Symbicort, and Zantac. DO ARLINE LOMBARDI/[id number]
--- NOTE | 2016-10-26 14:25 | PATH ---
Surgical Pathology Report Patient Name: JI MICHAEL Med. Rec. #: [id number] /Age/Gender: 1965 (Age: 50) / F Account: [id number] Location: [facility] MED/SURG Taken: 10/20/2016 Received: 10/21/2016 Reported: 10/26/2016 Physicians: Husam Caldera M.D. Specimen(s) Received PORTION OF VENTRAL HERNIA SAC Clinical History Ventral hernia with obstruction Final Diagnosis PORTION OF HERNIA SAC, VENTRAL HERNIA REPAIR: FOCALLY MESOTHELIUM LINED BENIGN FIBROMEMBRANOUS AND FIBROFATTY TISSUE WITH FIBROUS SCAR, CHRONIC INFLAMMATION WITH FOREIGN BODY TYPE MULTINUCLEATED GIANT CELL REACTION, FAT NECROSIS, CALCIFICATIONS. Comment: Immunohistochemical stain for beta-catenin performed at [place], [place] ([id number]) and interpreted at [facility] shows nonspecific cytoplasmic staining, supporting the impression of the fibrous scar. Electronically Signed Kiran Abbott M.D. Gross Description Received in formalin labelled "portion of ventral hernia sac" is a 13.5 x 11 x 1.5 cm portion of fibrous tissue with attached yellow adipose tissue. A 1.8 cm greatest dimension firm and focally cystic area is present towards one edge of the specimen. No other distinct lesions are identified. Information Technology Teacher sections are submitted in 4 cassettes with sections from the firm area submitted in cassettes 1-3, and an additional bank representative section submitted in cassette 4. [facility]/10/21/2016 [facility]/10/21/2016
== END 2016-10-22 14:43 | disposition home or self-care (01) | DRG 355 ==
LOC: JASUSAT 05:09 → JSAMEDAYSX 05:10 → J8W 18:25
PROVIDERS: ADMIT Surgery; ATTEND Surgery
PROC: 0WUF0JZ Supplement Abdominal Wall with Synthetic Substitute, Open Approach (ICD-10-PCS; principal; 2016-10-20 12:30)
DX: K43.0 Incisional hernia with obstruction, without gangrene (principal); K21.9 Gastro-esophageal reflux disease without esophagitis; Z85.3 Personal history of malignant neoplasm of breast; J45.909 Unspecified asthma, uncomplicated; I10 Essential (primary) hypertension
CPT/HCPCS: 88302-TC; 94010; 94760; J1644

== ENCOUNTER 2017-05-27 09:45 | Day surgery (SDC) | payer BC ==
[2017-05-26 15:17] VITALS: BMI 33.1
[2017-05-27] MEDS ORDERED: PROPOFOL 20 ML ONE ×5 (10:35)
[2017-05-27] MEDS ORDERED: LIDOCAINE HCL/PF 2% SDV 5ML VIAL ONE (10:35)
[2017-05-27 11:37] VITALS: TEMP 97.5
[2017-05-27 12:02] VITALS: PULSE 73
[2017-05-27 12:29] VITALS: BP 102/57
--- NOTE | 2017-05-30 11:20 | PATH ---
Surgical Pathology Report Patient Name: JI MICHAEL [facility]. Rec. #: [id number] /Age/Gender: 1965 (Age: 51) / F Account: [id number] Location: [facility]-ENDOSCOPY Taken: 05/27/2017 Received: 05/27/2017 Reported: 05/30/2017 Physicians: Zena Giron M.D. Specimen(s) Received A: BX DUODENUM 2ND PORTION AND BULB B: BX GASTRIC ANTRUM C: BX ESOPHAGUS D: ASCENDING COLON POLYP Clinical History Preoperative diagnosis: Colonic polyps, GERD, family history of colon cancer, BRCA1 gene mutation positive finding Postoperative diagnosis: Hiatal hernia, diverticulosis, colon polyps Final Diagnosis A. DUODENUM, SECOND PORTION/BULB, BIOPSY: DUODENAL MUCOSA WITH MILD CHRONIC DUODENITIS AND KHADAR'S GLAND HYPERPLASIA. B. STOMACH, ANTRUM, BIOPSY: GASTRIC ANTRAL MUCOSA WITH MILD CHRONIC GASTRITIS. IMMUNOHISTOCHEMICAL STAIN FOR H. PYLORI IS NEGATIVE. C. DISTAL ESOPHAGUS, BIOPSY: SQUAMOUS MUCOSA WITH VASCULAR CONGESTION AND BASAL CELL HYPERPLASIA CONSISTENT WITH MODERATE TO SEVERE REFLUX TYPE ESOPHAGITIS. D. ASCENDING COLON, POLYPS, BIOPSY: TUBULAR ADENOMA(S). Electronically Signed Swait De Leon M.D. Gross Description A. Received in formalin, labeled "biopsy duodenum second portion"" are 3 yoo, irregular portions of soft tissue ranging from 0.3-0.4 cm. in greatest dimension. The specimens are submitted in toto in one cassette. B. Received in formalin, labeled "biopsy gastric body, antrum" are 8 yoo, irregular portions of soft tissue ranging from 0.2-0.6 cm. in greatest dimension. The specimens are submitted in toto in one cassette. C. Received in formalin, labeled "biopsy distal esophagus" is a yoo, irregular portion of soft tissue measuring 0.4 cm. in greatest dimension. The specimen is submitted in toto in one cassette. D. Received in formalin, labeled "biopsy polyps ascending colon" are 4 yoo, irregular portions of soft tissue ranging from 0.1-0.3 cm. in greatest dimension. The specimens are submitted in toto in one cassette. 05/27/201705/27/2017
== END 2017-05-27 12:34 | disposition home or self-care (01) ==
LOC: JASU-ENDO 09:45
PROVIDERS: ATTEND Internal Medicine Gastroenterology
PROC: 0DB38ZX Excision of Lower Esophagus, Via Natural or Artificial Opening Endoscopic, Diagnostic (ICD-10-PCS; 2017-05-27)
PROC: 0DBK8ZX Excision of Ascending Colon, Via Natural or Artificial Opening Endoscopic, Diagnostic (ICD-10-PCS; principal; 2017-05-27 12:00)
DX: Z12.11 Encounter for screening for malignant neoplasm of colon (principal); Z85.3 Personal history of malignant neoplasm of breast; Z85.43 Personal history of malignant neoplasm of ovary; Z80.0 Family history of malignant neoplasm of digestive organs; K57.30 Diverticulosis of large intestine without perforation or abscess without bleeding; K64.8 Other hemorrhoids; D12.2 Benign neoplasm of ascending colon; K21.9 Gastro-esophageal reflux disease without esophagitis; K44.9 Diaphragmatic hernia without obstruction or gangrene
CPT/HCPCS: 88305-TC; 88342-TC

== ENCOUNTER 2018-05-16 13:41 | Emergency (ER) | payer BC ==
[2018-05-16] MEDS ORDERED: SODIUM CHLORIDE 500 ML IV ONE (13:42)
[2018-05-16 13:46] VITALS: TEMP 98.6; BMI 33.6
[2018-05-16 14:10] LABS: BASO % 0.6 % (0-2.0); HEMOGLOBIN 12.2 GM/dl (10.7-15.3)
[2018-05-16 14:19] LABS: EOS % 3.7 % (0-4.5); LYMPH % 36.6 % (8-40); MCH 37.3 pg (25.7-33.7); MCHC 33.9 g/dl (32.0-36.0); MEAN CELL VOLUME 109.9 fl (80-96); MEAN PLT VOLUME 8.9 fl (7.5-11.1); MONO % 6.1 % (3.8-10.2); PLATELET COUNT 198 K/MM3 (134-434); RBC 3.28 M/mm3 (3.60-5.2); RDW 16.3 % (11.6-15.6); WHITE BLOOD COUNT 5.1 K/mm3 (4.0-10.8)
--- NOTE | 2018-05-16 14:26 | PDOC ---
History of Present Illness - General Chief Complaint: Pain, Acute Stated Complaint: RIGHT CHEST PAIN Time Seen by Provider: 05/16/18 13:42 History Source: Patient, Old Records Exam Limitations: No Limitations - History of Present Illness Initial Comments: 05/16/18 14:21 52-year-old female with history of breast CA in remission (status post bilateral mastectomy with implants, chemotherapy and radiation in the past complicated by mildly compromised EF of 40% secondary to Adriamycin), ovarian CA in 2017 status post MARLENY/BSO with chemotherapy now in remission with CAT scan last month showing no evidence of metastatic disease, presents now with cough and right-sided chest pain. Patient had URI symptoms of nasal congestion and cough about 2 weeks ago, treated with antibiotics and symptoms significantly improved but still with residual dry cough. Over the last 3 or 4 days, has noted a very pinpoint and sharp pain in the right lower parasternal region that occurs specifically when she coughs or expands her chest or twists her body. There was no injury, no bruising or rash, no associated fevers or chills or orthopnea, no dyspnea on exertion or palpitations or shortness of breath. She has been taking Motrin with temporary improvement in the symptoms. Saw her PCP today and concern was raised for pulmonary embolism given the history, so she was referred to the emergency department. No recent travel, last surgery was in September 2017 for hernia repair, no DVT symptoms, no personal or family history of PE or DVT. Is BRCA 1 positive. Not on hormone replacement therapy. Not a smoker. Past History - Past Medical History Allergies/Adverse Reactions: Allergies Allergy/AdvReac Type Severity Reaction Status Date / Time piperacillin sodium Allergy Severe Hives Verified 05/16/18 13:42 [From Zosyn] tazobactam sodium Allergy Severe Hives Verified 05/16/18 13:42 [From Zosyn] docetaxel [From Taxotere] Allergy Verified 05/16/18 13:42 PROLINE SUTURES Allergy Severe Uncoded 05/16/18 13:42 Home Medications: Ambulatory Orders Nebivolol HCl [Bystolic] 5 mg PO HS 08/04/15 Ramipril 2.5 mg PO HS 01/30/16 Budesonide/Formeterol Fumarate [SYMBICORT 160/4.5mcg -] 1 inh PO BID PRN Ranitidine HCl [Zantac] 150 mg PO PRN 05/27/16 Olaparib [Lynparza] 300 mg PO BID 05/27/17 Anemia: No Asthma: Yes Cancer: Yes (BREAST CA,ovarian ca stage 3) Cardiac Disorders: No CVA: No COPD: No CHF: Yes (POST CHEMO CHF EF 40%) Dementia: No Diabetes: No GI Disorders: Yes (GERD, COLON POLYPS) Disorders: No HTN: No Hypercholesterolemia: No Liver Disease: No Seizures: No Thyroid Disease: No - Surgical History Abdominal Surgery: Yes (incarcerated hernia, MESH UMBILICAL HERNIA REPAIR 10/11) Appendectomy: No Cardiac Surgery: No Cholecystectomy: No Lung Surgery: No Neurologic Surgery: No Orthopedic Surgery: Yes (LUMBAR LAMINECTOMY) - Suicide/Smoking/Psychosocial Hx Smoking History: Former smoker Have you smoked in the past 12 months: No If you are a former smoker, when did you quit?: 2 YEARS Information on smoking cessation initiated: No 'Breaking Loose' booklet given: 08/04/15 Hx Alcohol Use: Yes (OCASIONAL) Drug/Substance Use Hx: No Substance Use Type: None Hx Substance Use Treatment: No Review of Systems - Review of Systems Constitutional: No: Chills, Fever, Night Sweats, Unintentional Wgt. Loss Respiratory: Yes: Cough, Wheezing (occasional wheezing from radiation). No: Shortness of Breath Cardiac (ROS): Yes: See HPI. No: Edema, Palpitations, Syncope ABD/GI: No: Diarrhea, Nausea, Vomiting Neurological: No: Headache All Other Systems: Reviewed and Negative *Physical Exam - Vital Signs Last Vital Signs Temp Pulse Resp BP Pulse Ox 98.6 F 64 17 148/87 99 05/16/18 13:42 05/16/18 13:42 05/16/18 13:42 05/16/18 13:42 05/16/18 13:42 - Physical Exam Comments: 05/16/18 14:26 Vital signs normal, O2 sat 99% on room air GENERAL: The patient is awake, alert, and fully oriented, in no acute distress speaking full sentences HEAD: Normal with no signs of trauma. EYES: PERRL, EOMI, conjunctiva clear. ENT: Moist mucous membranes. NECK: Normal range of motion, supple. CHEST: no rash/shingles or bruising. Reproducible ttp lower R parasternal border without crepitus or step-off/deformity. LUNGS: Breath sounds equal, clear to auscultation bilaterally. Scant wheeze R base, no crackles. HEART: Regular rate and rhythm, normal S1 and S2 without murmur or rub. ABDOMEN: Soft/nontender/nondistended. BS wnl. No guarding or rebound. EXTREMITIES: Normal range of motion, no edema or calf tenderness. 2+ distal pulses. NEUROLOGICAL: Cranial nerves II through XII grossly intact. Normal speech, normal gait PSYCH: Normal mood, normal affect. SKIN: Warm, Dry, no rashes or lesions noted. Moderate Sedation - Procedure Monitoring Vital Signs: Procedure Monitoring Vital Signs Temperature 98.6 F 05/16/18 13:42 Pulse Rate 64 05/16/18 13:42 Respiratory Rate 17 05/16/18 13:42 Blood Pressure 148/87 05/16/18 13:42 O2 Sat by Pulse Oximetry (%) 99 05/16/18 13:42 Heart Score/ECG Review #1 ECG reviewed & interpreted by me at: 14:36 General ECG Interpretation: Sinus Rhythm, Normal Rate (70), Normal Intervals ( qtc 464, qrs 128 with LBBB), No acute ischemic changes Compared to previous ECG there are: No significant change (prior EKG on file from 02/10 showed L axis deviation but normal QRS. This has progressed without acute ischemic abnormality) ED Treatment Course - LABORATORY CBC & Chemistry Diagram: 05/16/18 14:06 05/16/18 14:06 - RADIOLOGY Radiology Studies Ordered: Category Date Time Status CHEST CTA [CT] Stat CT Scan 05/16/18 13:43 Ordered Medical Decision Making - Medical Decision Making 05/16/18 14:30 52-year-old female with history of breast and ovarian CA now with localized right chest pain for 3 days in the setting of URI/cough, sent here for concern for PE. 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 Otherwise, presentation seems most consistent with musculoskeletal/costochondral pain or strain from cough. Labs including troponin and EKG CTA chest, creatinine 1.2 in March and historically normal Reassess, will discuss disposition with Dr. Garcias, patient's PCP. 05/16/18 14:53 labs wnl, including troponin. EKG with evolved L axis deviation and now LBBB without acute ischemic change. morphology similar to 2016, is followed by Dr. Rodriguez. CTA without PE or acute lung pathology/nodule. Continues to feel well, will f/u with Dr. Flanagan. Continue nsaids prn for pain , expect resolution of sxs over next few days. Understands return criteria. *DC/Admit/Observation/Transfer Diagnosis at time of Disposition: Costochondral chest pain - Discharge Dispostion Disposition: HOME Condition at time of disposition: Stable - Referrals Referrals: Bernadine Garcias [Primary Care Provider] - Yasmin Rodriguez MD [Staff Physician] - - Patient Instructions Printed Discharge Instructions: DI for Costochondritis, DI for Muscle Strain Additional Instructions: Activity as tolerated. Stay hydrated. Blood tests and a CAT scan of the chest showed no acute abnormalities, including no PE or pneumonia. An EKG looks similar to 2016, but has advanced to a left bundle branch block so you should follow up with your dietary tech. As discussed, the pain is likely due to a strain of the cartilage and/or muscles around the ribs and sternum, likely from coughing. Tylenol 1000 mg every 8 hours and/or ibuprofen 600 mg every 8 hours as needed for pain. The symptoms should get better over the next few days. Continue your medications as previously prescribed by your physician. You should follow up with Dr. Garcias and Dr. Rodriguez as soon as possible regarding today's emergency department visit. Return to the emergency department for any new or concerning symptoms, particularly persistent or worsening pain, shortness of breath or palpitations, rash or discoloration or swelling, fever or chills. - Post Discharge Activity
[2018-05-16 14:31] LABS: INR 1.16 (0.82-1.09); PROTHROMBIN TIME (PATIENT) 12.9 SEC (10.2-13.0)
[2018-05-16 14:36] LABS: ALBUMIN 4.3 g/dl (3.4-5.0); ALK PHOS 58 U/L (45-117); ANION GAP 12 MMOL/L (8-16); BILIRUBIN,TOTAL 1.2 mg/dl (0.2-1); BLOOD UREA NITROGEN 15 mg/dl (7-18); CALCIUM 9.2 mg/dl (8.5-10); CHLORIDE 93 mmol/L (98-107); CO2 29 mmol/L (21-32); CREATININE 1.2 mg/dl (0.55-1.3); GLUCOSE,RANDOM 89 mg/dl (74-106); MAGNESIUM 1.1 mg/dL (1.8-2.4); POTASSIUM 3.5 mmol/L (3.5-5.1); SGOT/AST 31 U/L (15-37); SGPT/ALT 24 U/L (13-61); SODIUM 134 mmol/L (136-145); TOT PROT 6.8 g/dl (6.4-8.2)
[2018-05-16 14:50] VITALS: BP 105/57; PULSE 70
--- NOTE | 2018-05-18 12:00 | EKG ---
Test Reason : Blood Pressure : / mmHG Vent. Rate : 070 BPM Atrial Rate : 070 BPM P-R Int : 166 ms QRS Dur : 128 ms QT Int : 430 ms P-R-T Axes : 033 -39 087 degrees QTc Int : 464 ms NORMAL SINUS RHYTHM LEFT AXIS DEVIATION LEFT BUNDLE BRANCH BLOCK ABNORMAL ECG WHEN COMPARED WITH ECG OF 27-JAN-2016 14:22, LEFT BUNDLE BRANCH BLOCK IS NOW PRESENT Confirmed by KRUPA MATTHEW, ANGUS ([id number]) on 05/18/2018 11:59:49 AM Referred By: DARRIN MANN Confirmed By:ANGUS GENTILE MD
== END 2018-05-16 15:05 | disposition home or self-care (01) ==
LOC: FER 13:41
PROC: 3E0337Z Introduction of Electrolytic and Water Balance Substance into Peripheral Vein, Percutaneous Approach (ICD-10-PCS; principal; 2018-05-16)
DX: R07.89 Other chest pain (principal); R05 Cough
CPT/HCPCS: 36415; 71275-TC; 80053; 82550; 82553; 83735; 84484; 85025; 85610; 93005; 99283-25

== ENCOUNTER 2020-06-28 10:54 | Inpatient (IN) | payer BC ==
[2020-06-28] MEDS ORDERED: ACETAMINOPHEN 1000 MG/100 ML VIAL (NON FORMULARY) IVPB ONE (10:57)
[2020-06-28] MEDS ORDERED: ONDANSETRON 4 MG/2 ML VIAL IVPUSH ONE (10:57)
[2020-06-28] MEDS ORDERED: SODIUM CHLORIDE 0.9% 1000 ML INFUS.BAG IV ONE (10:57)
[2020-06-28] MEDS ORDERED: ACETAMINOPHEN INJECTION 100 ML IVPB ONE (11:09)
[2020-06-28] MEDS ORDERED: ONDANSETRON 4 MG/2 ML VIAL ONE (11:09)
[2020-06-28 11:46] LABS: HEMOGLOBIN 13.4 GM/dl (10.7-15.3); MCH 36.3 pg (25.7-33.7); MCHC 33.4 g/dl (32.0-36.0); MEAN CELL VOLUME 108.5 fl (80-96); MEAN PLT VOLUME 9.3 fl (7.5-11.1); PLATELET COUNT 214 K/MM3 (134-434); RBC 3.69 M/mm3 (3.60-5.2); RDW 16.8 % (11.6-15.6); WHITE BLOOD COUNT 9.8 K/mm3 (4.0-10.8)
[2020-06-28 12:04] LABS: ALBUMIN 4.4 g/dl (3.4-5.0); CALCIUM 9.4 mg/dl (8.5-10); TOT PROT 7.2 g/dl (6.4-8.2)
[2020-06-28 12:16] LABS: ANISOCYTOSIS FEW; PLATELET ESTIMATE ADEQUATE
[2020-06-28] MEDS ORDERED: morphine CARPU-JECT 4 MG/1 ML DISP.SYRIN IVPUSH ONE (13:13)
[2020-06-28] MEDS ORDERED: morphine SULFATE 4 MG/ML VIAL ONE (13:14)
[2020-06-28 14:04] LABS: LIPASE 146 U/L (73-393)
[2020-06-28] MEDS: POTASSIUM CHLORIDE 10 MEQ in DEXTROSE 5%-NORMAL SALINE 1,000 ML IVPB SCH (15:30)
[2020-06-28] MEDS ORDERED: BUDESONIDE/FORMETEROL FUMARATE 160/4.5 mcg INHALER IH PRN (15:33)
[2020-06-28] MEDS: ONDANSETRON 4 MG/2 ML VIAL IVPB PRN (17:49)
[2020-06-28] MEDS ORDERED: MORPHINE SULFATE 2 MG/ML VIAL IVPB ONE (18:00)
[2020-06-28] MEDS ORDERED: morphine CARPU-JECT 2 MG/1 ML DISP.SYRIN IVPB ONE (18:00)
[2020-06-28] MEDS ORDERED: MORPHINE SULFATE 2 MG/ML VIAL ONE (18:03)
[2020-06-28] MEDS: NEBIVOLOL 5 MG TABLET (FP) PO SCH (21:47)
[2020-06-28] MEDS: RAMIPRIL 5 MG CAPSULE PO SCH (21:47)
[2020-06-28] MEDS: ROSUVASTATIN CA 5 MG TABLET (FP) PO SCH (21:47)
[2020-06-28] MEDS: HEPARIN NA (PORCINE) 5,000 UNITS/ML 1ML VIAL SQ SCH (21:48)
[2020-06-28] MEDS: OLAPARIB 150 MG PO SCH (22:36)
[2020-06-29 09:37] LABS: BASO % 3.8 % (0-2.0); EOS % 1.9 % (0-4.5); HEMATOCRIT 34.5 % (32.4-45.2); HEMOGLOBIN 11.3 GM/dl (10.7-15.3); LYMPH % 20.9 % (8-40); MCH 35.8 pg (25.7-33.7); MCHC 32.8 g/dl (32.0-36.0); MEAN CELL VOLUME 109.3 fl (80-96); MEAN PLT VOLUME 8.8 fl (7.5-11.1); MONO % 5.7 % (3.8-10.2); NEUT % 67.7 % (42.8-82.8); PLATELET COUNT 181 K/MM3 (134-434); RBC 3.15 M/mm3 (3.60-5.2); RDW 16.4 % (11.6-15.6); WHITE BLOOD COUNT 5.4 K/mm3 (4.0-10.8)
[2020-06-29] MEDS: MAGNESIUM SULF 50% (8.12 MEQ/2 ML-1 GM VIAL) IVPB SCH (09:43)
[2020-06-29] MEDS: HEPARIN NA (PORCINE) 5,000 UNITS/ML 1ML VIAL SQ SCH ×2 (09:44→22:00)
[2020-06-29] MEDS: PANTOPRAZOLE SODIUM 40 MG VIAL IVPUSH SCH (09:44)
[2020-06-29 10:02] LABS: ALBUMIN 3.5 g/dl (3.4-5.0); BILIRUBIN,TOTAL 0.8 mg/dl (0.2-1); CALCIUM 8.3 mg/dl (8.5-10); POTASSIUM 3.4 mmol/L (3.5-5.1); TOT PROT 5.8 g/dl (6.4-8.2)
[2020-06-29] MEDS: OLAPARIB 150 MG PO SCH ×2 (10:14→22:32)
[2020-06-29] MEDS: ONDANSETRON 4 MG/2 ML VIAL IVPB PRN ×2 (12:11→21:57)
[2020-06-29] MEDS: MORPHINE SULFATE 2 MG/ML VIAL IVPUSH PRN ×2 (12:12→22:36)
[2020-06-29] MEDS ORDERED: POTASSIUM CHLORIDE ORAL LIQUID 20 MEQ/15 ML PO ONE (15:01)
[2020-06-29] MEDS: POTASSIUM CHLORIDE 10 MEQ in DEXTROSE 5%-NORMAL SALINE 1,000 ML IVPB SCH ×2 (15:43→20:00)
[2020-06-29] MEDS: ROSUVASTATIN CA 5 MG TABLET (FP) PO SCH (21:59)
[2020-06-29] MEDS: RAMIPRIL 5 MG CAPSULE PO SCH (21:59)
[2020-06-29] MEDS: NEBIVOLOL 5 MG TABLET (FP) PO SCH (22:00)
[2020-06-30] MEDS: POTASSIUM CHLORIDE 10 MEQ in DEXTROSE 5%-NORMAL SALINE 1,000 ML IVPB SCH ×2 (06:36→16:39)
[2020-06-30 08:04] LABS: BASO % 3.4 % (0-2.0); EOS % 1.9 % (0-4.5); HEMATOCRIT 33.2 % (32.4-45.2); HEMOGLOBIN 11.3 GM/dl (10.7-15.3); LYMPH % 18.2 % (8-40); MCHC 33.9 g/dl (32.0-36.0); MEAN CELL VOLUME 109.3 fl (80-96); MEAN PLT VOLUME 9.1 fl (7.5-11.1); MONO % 5.9 % (3.8-10.2); NEUT % 70.6 % (42.8-82.8); PLATELET COUNT 172 K/MM3 (134-434); RBC 3.04 M/mm3 (3.60-5.2); RDW 16.3 % (11.6-15.6); WHITE BLOOD COUNT 5.9 K/mm3 (4.0-10.8)
[2020-06-30 08:12] LABS: ALBUMIN 3.4 g/dl (3.4-5.0); BILIRUBIN,TOTAL 0.9 mg/dl (0.2-1); CALCIUM 8.4 mg/dl (8.5-10); MAGNESIUM 1.1 mg/dL (1.8-2.4); POTASSIUM 3.5 mmol/L (3.5-5.1); TOT PROT 5.6 g/dl (6.4-8.2)
[2020-06-30 09:15] VITALS: TEMP 98.7
[2020-06-30] MEDS: HEPARIN NA (PORCINE) 5,000 UNITS/ML 1ML VIAL SQ SCH (09:30)
[2020-06-30] MEDS: MAGNESIUM SULF 50% (8.12 MEQ/2 ML-1 GM VIAL) IVPB SCH (09:31)
[2020-06-30] MEDS: PANTOPRAZOLE SODIUM 40 MG VIAL IVPUSH SCH (09:31)
[2020-06-30] MEDS: OLAPARIB 150 MG PO SCH (10:14)
[2020-06-30 14:15] VITALS: BP 109/60; PULSE 65
[2020-06-30] MEDS ORDERED: ACETAMINOPHEN 325 MG TABLET (FP) PO PRN (14:35)
== END 2020-06-30 19:02 | disposition home or self-care (01) | DRG 389 ==
LOC: FER 10:54 → FM/S 15:18
PROVIDERS: ADMIT Internal Medicine; ATTEND Internal Medicine
DX: K56.51 Intestinal adhesions [bands], with partial obstruction (principal); I42.9 Cardiomyopathy, unspecified; J45.909 Unspecified asthma, uncomplicated; Z85.3 Personal history of malignant neoplasm of breast; I50.9 Heart failure, unspecified
CPT/HCPCS: 36415; 74018-TC-FY; 74177-TC; 80053; 83690; 83735; 84484; 85025; 87804; 93005; 99285-25; C9803; J0131; J1644; Q9967; U0003; U0005

== ENCOUNTER 2020-08-08 05:07 | Day surgery (SDC) | payer BC ==
[2020-08-06 15:33] VITALS: BMI 33.1
[2020-08-08 08:58] VITALS: TEMP 97.5
[2020-08-08 09:42] VITALS: BP 94/51; PULSE 61
== END 2020-08-08 09:42 | disposition home or self-care (01) ==
LOC: JASU-ENDO 05:07
PROVIDERS: ATTEND Internal Medicine Gastroenterology
PROC: 0DB98ZX Excision of Duodenum, Via Natural or Artificial Opening Endoscopic, Diagnostic (ICD-10-PCS; 2020-08-08)
PROC: 0DB78ZX Excision of Stomach, Pylorus, Via Natural or Artificial Opening Endoscopic, Diagnostic (ICD-10-PCS; 2020-08-08)
PROC: 0DJD8ZZ Inspection of Lower Intestinal Tract, Via Natural or Artificial Opening Endoscopic (ICD-10-PCS; principal; 2020-08-08 08:00)
DX: Z12.11 Encounter for screening for malignant neoplasm of colon (principal); K21.9 Gastro-esophageal reflux disease without esophagitis; K29.70 Gastritis, unspecified, without bleeding; K57.30 Diverticulosis of large intestine without perforation or abscess without bleeding; Z86.010 Personal history of colon polyps; Z80.0 Family history of malignant neoplasm of digestive organs; Z87.19 Personal history of other diseases of the digestive system
CPT/HCPCS: 43239; G0105; 88305-TC; 88342-TC

== ENCOUNTER 2023-11-01 04:30 | Day surgery (SDC) | payer BC ==
[2023-10-27 14:23] VITALS: BMI 36.1
[2023-11-01 09:29] VITALS: RESP 18
[2023-11-01 15:13] VITALS: BP 90/61; TEMP 97.4
[2023-11-01 15:15] VITALS: PULSE 95
== END 2023-11-01 11:29 | disposition home or self-care (01) ==
LOC: JASU-ENDO 04:30
PROVIDERS: ATTEND Internal Medicine Gastroenterology
PROC: 0DBN8ZX Excision of Sigmoid Colon, Via Natural or Artificial Opening Endoscopic, Diagnostic (ICD-10-PCS; 2023-11-01)
PROC: 0DBF8ZX Excision of Right Large Intestine, Via Natural or Artificial Opening Endoscopic, Diagnostic (ICD-10-PCS; 2023-11-01)
PROC: 0DB98ZX Excision of Duodenum, Via Natural or Artificial Opening Endoscopic, Diagnostic (ICD-10-PCS; 2023-11-01)
PROC: 0DB78ZX Excision of Stomach, Pylorus, Via Natural or Artificial Opening Endoscopic, Diagnostic (ICD-10-PCS; 2023-11-01)
PROC: 0DB68ZX Excision of Stomach, Via Natural or Artificial Opening Endoscopic, Diagnostic (ICD-10-PCS; 2023-11-01)
PROC: 0DB48ZX Excision of Esophagogastric Junction, Via Natural or Artificial Opening Endoscopic, Diagnostic (ICD-10-PCS; 2023-11-01)
PROC: 0DBH8ZX Excision of Cecum, Via Natural or Artificial Opening Endoscopic, Diagnostic (ICD-10-PCS; principal; 2023-11-01 10:00)
DX: Z12.11 Encounter for screening for malignant neoplasm of colon (principal); D12.0 Benign neoplasm of cecum; D12.2 Benign neoplasm of ascending colon; K57.30 Diverticulosis of large intestine without perforation or abscess without bleeding; K64.8 Other hemorrhoids; K29.50 Unspecified chronic gastritis without bleeding; K21.00 Gastro-esophageal reflux disease with esophagitis, without bleeding; K44.9 Diaphragmatic hernia without obstruction or gangrene; Z86.010 Personal history of colon polyps
CPT/HCPCS: 88305-TC; 88342-TC